=== PATIENT | male | born 1975 | race Caucasian/White ===

== ENCOUNTER 2021-08-18 18:57 | Emergency (ER) | payer BC, OTHER ==
[2021-08-18] MEDS ORDERED: Sodium Chloride 0.9% 10 ML Syringe FLUSH PRN (19:25)
[2021-08-18 19:31] VITALS: BP 155/87; PULSE 78
== END 2021-08-18 21:39 | disposition home or self-care (01) ==
LOC: JD.ED 18:57
DX: R07.89 Other chest pain (principal); Z88.0 Allergy status to penicillin
CPT/HCPCS: 36415; 71045; 71045-26; 80053; 83735; 83880; 84484; 85025; 85610; 85730; 93005; 93010; 99284; 99285-25